=== PATIENT | male | born 1970 | race Caucasian/White ===

== ENCOUNTER 2020-04-18 13:08 | Emergency (ER) | payer MEDICAID ==
[2020-04-18] MEDS: Ondansetron 4 MG Tab.DIS PO ONE (13:27)
[2020-04-18] MEDS: Ketorolac 30 MG/ML SDV IM ONE (13:31)
[2020-04-18] MEDS: diphenhydrAMINE 50 MG/ML SDV IM ONE (13:31)
[2020-04-18] MEDS: SUMAtriptan 6 MG/0.5 ML SDV SUBCUT ONE (14:11)
--- NOTE | 2020-04-18 14:24 | EDM.PDOC ---
ED HPI GENERAL MEDICAL PROBLEM - General Chief Complaint: Headache Time Seen by Provider: 04/18/20 13:20 Source of Information: Reports: Patient History Limitations: Reports: No Limitations - History of Present Illness INITIAL COMMENTS - FREE TEXT/NARRATIVE: Pt. presents to ER with complaints of severe migraine headache. Pt. states that he has a history of migraine, and states that the last severe one he had was about a year ago. He states that this is similar to migraines he has had in the past, but states that it is not getting better. Pt. denies any fever or chills. No numbness/tingling in face/extremities. No problems with speech/ambulation. He denies any head trauma. Pt. states that the pain started last Tuesday. He states that he has been experiencing some vomiting/nausea. He states that the pain is located behind his L eye/temporal area. Complains of positive photophobia and phonophobia, which he states is consistent with previous migraines. Onset Date: 04/13/20 Location: Reports: Head Quality: Reports: Throbbing Severity: Severe Associated Symptoms: Reports: Headaches, Nausea/Vomiting. Denies: Confusion, Chest Pain, Cough, Diaphoresis, Fever/Chills, Malaise, Rash, Seizure, Shortness of Breath, Syncope, Weakness Headache Pain Score (Numeric/FACES): 9 - Related Data Allergies Allergy/AdvReac Type Severity Reaction Status Date / Time No Known Allergies Allergy Verified 04/18/20 13:13 Home Meds: Home Meds . [No Known Home Meds] 04/18/20 [History] Past Medical History Neurological History: Reports: Migraines Social & Family History - Tobacco Use Tobacco Use Status *Q: Never Tobacco User - Recreational Drug Use Recreational Drug Use: No ED ROS GENERAL - Review of Systems Review Of Systems: See Below Constitutional: Reports: No Symptoms HEENT: Reports: No Symptoms Respiratory: Reports: No Symptoms Cardiovascular: Reports: No Symptoms Endocrine: Reports: No Symptoms GI/Abdominal: Reports: No Symptoms : Reports: No Symptoms Musculoskeletal: Reports: No Symptoms Skin: Reports: No Symptoms Neurological: Reports: Headache Psychiatric: Reports: No Symptoms Hematologic/Lymphatic: Reports: No Symptoms Immunologic: Reports: No Symptoms ED EXAM, GENERAL - Physical Exam Exam: See Below Exam Limited By: No Limitations General Appearance: Alert, WD/WN, No Apparent Distress Eye Exam: Bilateral Eye: EOMI, Normal Fundi, Normal Inspection, PERRL Ears: Normal External Exam, Hearing Grossly Normal Nose: Normal Inspection, No Blood Throat/Mouth: Normal Inspection, Normal Lips, Normal Teeth, Normal Oropharynx, Normal Voice, No Airway Compromise Head: Atraumatic, Normocephalic Neck: Normal Inspection, Supple, Non-Tender, Full Range of Motion Respiratory/Chest: No Respiratory Distress, No Accessory Muscle Use Extremities: Normal Inspection, Normal Range of Motion, Non-Tender Neurological: Alert, Oriented, CN II-XII Intact, Normal Cognition, Normal Reflexes, No Motor/Sensory Deficits, Other (No pronator drift in upper or lower extremities. Romberg negative. Gait within normal limits. No facial droop. Speech is fluent. ) Psychiatric: Flat Affect, Other (Seems upset having to undergo physical examination.) Skin Exam: Warm, Dry, Intact, Normal Color, No Rash Lymphatic: No Adenopathy Course - Vital Signs Last Recorded V/S: Last Vital Signs Temp 36.1 C 04/18/20 13:08 Pulse 108 H 04/18/20 13:08 Resp 16 04/18/20 13:08 BP 159/96 H 04/18/20 14:50 Pulse Ox 98 04/18/20 13:08 - Orders/Labs/Meds Meds: Medications Discontinued Medications Generic Name Dose Route Start Last Admin Trade Name Freq PRN Reason Stop Dose Admin Amoxicillin/Clavulanate Potassium 1 packet 04/18/20 14:52 04/18/20 15:07 Take Home: Amox/Clavulanate 875-12, 2 Tab Pac PO 04/18/20 14:53 1 packet ONETIME ONE Administration Chlorpromazine HCl 50 mg 04/18/20 13:17 04/18/20 13:31 Thorazine IM 04/18/20 13:18 50 mg ONETIME ONE Administration Diphenhydramine HCl 50 mg 04/18/20 13:17 04/18/20 13:31 Benadryl IM 04/18/20 13:18 50 mg ONETIME ONE Administration Ketorolac Tromethamine 30 mg 04/18/20 13:17 04/18/20 13:31 Toradol IM 04/18/20 13:18 30 mg ONETIME ONE Administration Ketorolac Tromethamine 1 packet 04/18/20 15:08 04/18/20 15:12 Take Home: Ketorolac 10 Mg, 4 Tab Pack PO 04/18/20 15:09 1 packet ONETIME ONE Administration Ondansetron HCl 4 mg 04/18/20 13:17 04/18/20 13:27 Zofran Odt PO 04/18/20 13:18 4 mg ONETIME ONE Administration Promethazine HCl 1 packet 04/18/20 14:53 04/18/20 15:07 Take Home: Promethazine 25 Mg, 4 Tab Pack PO 04/18/20 14:54 1 packet ONETIME ONE Administration Sumatriptan Succinate 6 mg 04/18/20 13:56 04/18/20 14:11 Imitrex SUBCUT 04/18/20 13:57 6 mg ONETIME ONE Administration - Radiology Interpretation Free Text/Narrative:: CT brain negative for acute pathology Departure - Departure Time of Disposition: 15:27 Disposition: Home, Self-Care 01 Clinical Impression: Migraine, Otitis media, Sinusitis - Discharge Information Instructions: Amoxicillin; Clavulanic Acid tablets, Ibuprofen tablets and cap sules, Sinusitis, Adult, Promethazine tablets, Otitis Media, Adult, Migraine Headache, Probiotics Referrals: PCP,None [Primary Care Provider] - Forms: ED Department Discharge Additional Instructions: both of your ear drums are reddened, consistent with a middle ear infection. You also are noted to have some thickening of your sinuses, consistent with a sinus infection. Augmentin 875mg 1 twice daily for 10 days Toradol 10mg 1 every 4-6 hours as needed for pain If you develop symptoms of migraine/nausea/vomiting Phenergan 25mg 1 every 6 hours as needed for pain/nausea You can also try over the counter benadryl (50mg every 4-6 hours). Recheck in clinic in 10-14 days. Sepsis Event Note (ED) - Evaluation Sepsis Screening Result: No Definite Risk - Problem List Review Problem List Initiated/Reviewed/Updated: Yes - Assessment/Plan Plan: both of your ear drums are reddened, consistent with a middle ear infection. You also are noted to have some thickening of your sinuses, consistent with a sinus infection. Augmentin 875mg 1 twice daily for 10 days Toradol 10mg 1 every 4-6 hours as needed for pain If you develop symptoms of migraine/nausea/vomiting Phenergan 25mg 1 every 6 hours as needed for pain/nausea You can also try over the counter benadryl (50mg every 4-6 hours). Recheck in clinic in 10-14 days.
--- NOTE | 2020-04-18 14:38 | CT ---
[id number] CT/CT Head WO IV EXAM: CT Head WO IV CLINICAL DATA: SEVERE HEADACHES COMPARISON STUDY: None FINDINGS: No intracranial hemorrhage, extra-axial fluid collection, mass, or acute ischemia. 1.3 cm calcified extra-axial mass along the left falx consistent with meningioma. Soft tissues are unremarkable. Mild mucosal thickening of paranasal sinuses. No evidence of aggressive sinusitis. The mastoid air cells are well aerated and clear. IMPRESSION: No acute intracranial process. Tanner Kc DO 04/18/20 [id number] Thank you for allowing us to participate in the care of your patient.
[2020-04-18] MEDS: Take Home: Amoxicillin/Clavulanate K 875-125 MG Tab, 2 Tab Pack PO ONE (15:07)
[2020-04-18] MEDS: Take Home: Promethazine 25 MG, 4 Tab Pack PO ONE (15:07)
[2020-04-18] MEDS: Take Home: Ketorolac 10 MG Tab, 4 Tab Pack PO ONE (15:12)
== END 2020-04-18 15:17 | disposition home or self-care (01) ==
LOC: VM.ED 13:08
DX: G43.909 Migraine, unspecified, not intractable, without status migrainosus (principal); J32.9 Chronic sinusitis, unspecified; H66.90 Otitis media, unspecified, unspecified ear
CPT/HCPCS: 70450; 96372; 99283; 99283-25; A9270-GY; J1200; J1885; J3030; J3230